=== PATIENT | male | born 2000 | race African-American/Black ===

== ENCOUNTER 2021-08-22 22:03 | Emergency (ER) | payer MEDICAID ==
[~2021-08-22] VITALS: Ht 198.1 cm; Wt 124.0 kg
[2021-08-22 22:49] VITALS: BP 150/91
[2021-08-22] MEDS ORDERED: HYDROCODONE/ACETAMINOPHEN 10/325MG TABLET PO ONE (23:30)
[2021-08-22 23:43] LABS: BASOPHILS % 0.6 % (0.0-2.0); EOSINOPHILS % 1.4 % (0.0-5.0); HEMATOCRIT. 40.3 % (42.0-52.0); HEMOGLOBIN. 13.4 g/dL (14.0-18.0); MEAN CORPUSCULAR VOLUME 83.8 fL (80.0-94.0); MEAN PLATELET VOLUME 6.5 fl (7.4-10.4); MONOCYTES % 5.3 % (2.0-8.0); NEUTROPHILS % 68.7 % (40.0-76.0); PLATELET 237 x1000/uL (130-400); RED CELL DISTRIBUTION WIDTH 13.4 % (11.6-14.6)
[2021-08-22 23:52] LABS: CHLORIDE 108 mEq/L (98-107)
[2021-08-23] MEDS ORDERED: POTASSIUM CHLORIDE 20MEQ/PACKET PO NR (01:00)
[2021-08-23] MEDS ORDERED: NAP5EC MT (01:37)
[2021-08-23] MEDS ORDERED: CYCL10TA21 MT (01:37)
== END 2021-08-23 02:20 | disposition home or self-care (01) ==
LOC: ER 22:03
DX: R07.89 Other chest pain (principal); V49.59XA Passenger injured in collision with other motor vehicles in traffic accident, initial encounter; Y93.89 Activity, other specified; Y92.89 Other specified places as the place of occurrence of the external cause; Y99.8 Other external cause status; J45.909 Unspecified asthma, uncomplicated
CPT/HCPCS: 36415; 71111; 80053; 84484; 85025; 93005; 99285